=== PATIENT | female | born 2000 | race Caucasian/White ===

== ENCOUNTER 2019-04-04 14:22 | Outpatient (CLI) | payer BC ==
--- NOTE | 2019-04-05 08:14 | PFT ---
PATIENT HISTORY: HEIGHT: 63 WEIGHT: 140 SMOKER: NO HOW LONG: NA PACKS PER DAY PRODUCTIVE COUGH: LUNG DISEASE: PHYSICIAN INTERPRETATION FINAL REPORT: Patient had good effort and good cooperation. Patient [employer] during the summer time. 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 FVC 3.93 (104%), FEV1 3.42 (103%), FEV1/FVC 0.87. RV 1.81 (144%), TLC 5.09 (101%) ERV 0.69 (49%). DIFFUSION 21.00 (77%) The FEV1 and FVC are normal. The RV is elevated but may be an artifact of incomplete exhalation, as the ERV is quite low. There is no significant improvement following the administration of a bronchodilator. The ratio between FEV1 and FVC is normal suggesting no evidence of obstructive air flow limitation. There is no scooping on the expiratory limb of the flow volume loop. The inspiratory limb is normal. Diffusion capacity is mildly impaired. IMPRESSION: Overall, these pulmonary function studies are most consistent with isolated reduced diffusion capacity with normal spirometry, and no significant improvement following the administration of a bronchodilator. Clinical correlation pulmonary vascular should be considered. I have not priors for comparison. Screed Person: LONNIE First Leveler: LONNIE INIGUEZ
== END 2019-04-04 14:23 | disposition home or self-care (01) ==
LOC: CP 14:22
PROVIDERS: ATTEND Family Medicine
DX: J45.40 Moderate persistent asthma, uncomplicated (principal)
CPT/HCPCS: 94060; 94727; 94729